=== PATIENT | male | born 1960 | race Caucasian/White ===

== ENCOUNTER 2018-10-04 15:45 | Emergency (ER) | payer BC ==
[2018-10-04] MEDS: SOD CHLORIDE 0.9% 1,000 ML IV (15:50)
[2018-10-04] MEDS: DILTIAZEM 25 MG INJ IV (15:50)
[2018-10-04] MEDS ORDERED: ADENOSINE 6 MG INJ IV (16:06)
[2018-10-04] MEDS: ADENOSINE 6 MG INJ IV (16:41)
== END 2018-10-04 16:57 | disposition home or self-care (01) ==
LOC: E/R 15:45
DX: I47.1 Supraventricular tachycardia (principal); I25.10 Atherosclerotic heart disease of native coronary artery without angina pectoris; Z98.61 Coronary angioplasty status; Z79.82 Long term (current) use of aspirin
CPT/HCPCS: 93005; 96374; 96375; 99284-25